=== PATIENT | male | born 1995 ===

== ENCOUNTER 2023-04-24 13:08 | Emergency (ER) | payer SELFPAY ==
[2023-04-24] MEDS ORDERED: Ketorolac Tromethamine 30 MG/ML VIAL ONE (14:33)
== END 2023-04-24 15:21 | disposition home or self-care (01) ==
LOC: ERS 13:08
DX: S20.212A Contusion of left front wall of thorax, initial encounter (principal); X50.0XXA Overexertion from strenuous movement or load, initial encounter
CPT/HCPCS: 71046; 96372; J1885